=== PATIENT | female | born 1935 | race African-American/Black ===

== ENCOUNTER → 2016-03-14 | Outpatient (CLI) | payer MEDICARE, OTHER ==
[~2016-03-14] MED LIST: BENZ100 PO; CALTTAB PO; CARD300C5 PO; CETI10 PO; CO Q100C9 PO; ENAL20TA PO; FLUT1INH INH; LASI20TA PO; LORTA5 PO; NOVOLOGMXP SQ; OXYB5TAB33 PO; ROSU5 PO; SPIRCAP INH; STOO100C PO
== END ==
LOC: HRSP 09:06
PROVIDERS: ATTEND Internal Medicine Pulmonary Disease
DX: J44.9 Chronic obstructive pulmonary disease, unspecified (principal)
CPT/HCPCS: 94620

== ENCOUNTER → 2016-03-19 | Outpatient (CLI) | payer MEDICARE, OTHER | LOC: HRSP 13:32 | PROVIDERS: ATTEND Internal Medicine Pulmonary Disease | DX: J44.9 Chronic obstructive pulmonary disease, unspecified (principal) | CPT/HCPCS: 94620 ==

== ENCOUNTER 2016-12-30 15:09 | Inpatient (IN) | payer MEDICARE, OTHER ==
[~2016-12-30] VITALS: Ht 162.6 cm; Wt 126.2 kg
[2016-12-30 15:12] VITALS: BP 145/58; PULSE 87; RESP 24; TEMP 97.8; O2SAT 96
[2016-12-30 15:25] VITALS: RESP 16; O2SAT 98
[2016-12-30] MEDS ORDERED: SODIUM CHLORID 0.9% 500 ML INJ 500 ML IV ONE (15:30)
[2016-12-30] MEDS ORDERED: SODIUM CHLORIDE 0.9% FLUSH 10 ML FLUSH IVF PRN (15:30)
--- NOTE | 2016-12-30 15:57 | PD ---
HPI Chief Complaint: Diabetic Time Seen by Provider: 15:21 Travel History International Travel<30 days: No Contact w/Intl Traveler<30days: No Traveled to known affect area: No History of Present Illness HPI Patient is an 81-year-old female with history of hypertension, hyperlipidemia, COPD on 2 L of oxygen at all times, diabetes currently taking Novolin 70/30 - 15 units in the morning as well as has a sliding scale insulin. Patient reports that around 11 PM last night, she had hypoglycemic episode. Patient reports that she felt lightheaded and dizzy and became diaphoretic and had a syncopal episode, she reports that her blood sugar at that time was 36. EMS arrived on scene and gave her glucose, reports that at that time she felt better and did not want to go to the hospital. Patient reports that prior to that, she was feeling fine. Reports that she did give herself her Novolin 70/ 30 in the morning, she did not give herself any sliding scale insulin. Patient reports that she has been feeling fine all day, denies any chest pain or shortness of breath, denies any dizziness or lightheadedness. Patient's daughter did call her primary care doctor, Dr. Carl Peters and was told to bring patient to the ER for evaluation. Patient reports that prior to coming to the emergency room, her blood sugar was 157. Patient's blood sugar in the emergency room was 132. Patient this time with no complaints, denies any dizziness, headaches, denies any chest pain or shortness of breath. Patient with no complaints. PFSH Past Medical History Arthritis: Yes Asthma: Yes Autoimmune Disease: No Blood Disorders: No Anxiety: No Depression: No Heart Rhythm Problems: No Cancer: No Cardiovascular Problems: Yes (CHF) High Cholesterol: No Chemotherapy: No Chest Pain: No Congestive Heart Failure: Yes COPD: Yes Cerebrovascular Accident: Yes (04/2000) Diabetes: Yes Patient Takes Glucophage: Yes Diminished Hearing: No Endocrine: Yes Gastrointestinal Disorders: Yes GERD: No Glaucoma: Yes Genitourinary: No Headaches: No Hepatitis: No Hiatal Hernia: No Hypertension: Yes Immune Disorder: No Implanted Vascular Access Dvce: Yes Kidney Stones: No Musculoskeletal: Yes Neurologic: Yes Psychiatric: No Reproductive: No Respiratory: Yes (CHF ) Migraines: No Myocardial Infarction: No Radiation Therapy: No Renal Failure: No Seizures: No Sickle Cell Disease: No Sleep Apnea: Yes (C-PAP MACHINE ) Thyroid Disease: No Ulcer: No Tetanus Vaccination: Unknown Menopausal: Yes Tubal Ligation: Yes Past Surgical History Abdominal Surgery: Yes AICD: No Appendectomy: No Arteriovenous Shunt: No Cardiac Surgery: No Cholecystectomy: Yes Ear Surgery: No Endocrine Surgery: No Eye Surgery: Yes (BL CATARACTS) Genitourinary Surgery: No Gynecologic Surgery: Yes Hysterectomy: Yes Insulin Pump: No Joint Replacement: No Neurologic Surgery: Yes Oral Surgery: No Pacemaker: No Thoracic Surgery: Yes Other Surgery: Yes Social History Alcohol Use: No Tobacco Use: No Substance Use: No Allergies-Medications (Allergen,Severity, Reaction): Coded Allergies: iodine (Unverified Allergy, Severe, RESPIRATORY, 12/30/16) iohexol (Unverified Allergy, Severe, PT NEEDS TO BE PREMEDICATED, 12/30/16 ) penicillin G (Unverified Allergy, Severe, HIVES, 12/30/16) potassium iodide (Unverified Allergy, Severe, RESPIRATORY, 12/30/16) povidone-iodine (Unverified Allergy, Severe, RESPIRATORY, 12/30/16) shellfish derived (Unverified Allergy, Severe, 12/30/16) sodium iodide (Unverified Allergy, Severe, RESPIRATORY, 12/30/16) sodium iodide (Unverified Allergy, Severe, RESPIRATORY, 12/30/16) Reported Meds & Prescriptions Reported Meds & Active Scripts Active Cetirizine Hcl 10 Mg Tab 5 Mg PO DAILY Tessalon Perles (Benzonatate) 100 Mg Cap 200 Mg PO TID Novolog Mix 70/30 (Insulin Aspart Prota 70%/Aspart 30%) 100 Units/Ml Inj 15 Units SQ DAILY Hydrocodone/Acetaminophen 5 mg/325 mg 1 Tab 1 Tab PO BID PRN Reported Ditropan (Oxybutynin Chloride) 5 Mg Tab 10 Mg PO HS Breo Ellipta 100-25 Mcg/INH (Fluticasone Furoate-Vilanterol) 1 Inh Inh 1 Puff INH DAILY Crestor (Rosuvastatin Calcium) 5 Mg Tab 5 Mg PO DAILY Cardizem CD 300 mg (Diltiazem CD 300 mg) 300MG/24 Cap 300 Mg PO DAILY Colace (Docusate Sodium) 100 Mg Cap 100 Mg PO DAILY PRN Co Q 10 (Coenzyme Q10) 100 Mg Cap 200 Mg PO DAILY Caltrate 600+D (Calcium Carbonate/Cholecalciferol) + Tab 600 Mg PO DAILY Lasix (Furosemide) 20 Mg Tab 20 Mg PO DAILY 30 Days Spiriva Handihaler (Tiotropium [place]) 18 Mcg Cap 1 Cap INH DAILY Enalapril Maleate 20 Mg Tab 20 Mg PO DAILY Review of Systems General / Constitutional: No: Fever Eyes: No: Visual changes HENT: No: Headaches Cardiovascular: No: Chest Pain or Discomfort Respiratory: No: Shortness of Breath Gastrointestinal: No: Abdominal Pain Genitourinary: No: Dysuria Musculoskeletal: No: Pain Skin: No Rash Neurologic: No: Weakness Psychiatric: No: Depression Endocrine: No: Polydipsia Hematologic/Lymphatic: No: Easy Bruising Physical Exam Narrative GENERAL: NAD SKIN: Focused skin assessment warm/dry. HEAD: Atraumatic. Normocephalic. EYES: Pupils equal and round. No scleral icterus. No injection or drainage. ENT: No nasal bleeding or discharge. Mucous membranes pink and moist. NECK: Trachea midline. No JVD. CARDIOVASCULAR: Regular rate and rhythm. No murmur appreciated. RESPIRATORY: No accessory muscle use. Expiratory wheezing on exam. Breath sounds equal bilaterally. GASTROINTESTINAL: Abdomen soft, non-tender, nondistended. Hepatic and splenic margins not palpable. MUSCULOSKELETAL: No obvious deformities. No clubbing. No cyanosis. +2 pedal edema. NEUROLOGICAL: Awake and alert. No obvious cranial nerve deficits. Motor grossly within normal limits. Normal speech. PSYCHIATRIC: Appropriate mood and affect; insight and judgment normal. Data Data Last Documented VS Vital Signs Date Time Temp Pulse Resp B/P (MAP) Pulse Ox O2 Delivery O2 Flow Rate FiO2 12/30/16 16:15 100 Nasal Cannula 2.00 12/30/16 15:25 16 12/30/16 15:12 97.8 87 Orders Orders Electrocardiogram (12/30/16 15:21) Complete Blood Count With Diff (12/30/16 15:21) Comprehensive Metabolic Panel (12/30/16 15:21) Magnesium (Mg) (12/30/16 15:21) Beta Hydroxybutyrate (Acetone) (12/30/16 15:21) Urinalysis - C+S If Indicated (12/30/16 15:21) Blood Glucose (12/30/16 15:21) Blood Glucose (12/30/16 15:51) Blood Glucose (12/30/16 15:21) Blood Glucose (12/30/16 16:21) Ecg Monitoring (12/30/16 15:21) Iv Access Insert/Monitor (12/30/16 15:21) Oximetry (12/30/16 15:21) Sodium Chloride 0.9% Flush (Ns Flush) (12/30/16 15:30) Sodium Chlorid 0.9% 500 Ml Inj (Ns 500 M (12/30/16 15:30) Ckmb (Isoenzyme) Profile (12/30/16 15:45) Troponin I (12/30/16 15:45) Chest, Single Ap (12/30/16 15:45) Albuterol-Ipratropium Neb (Duoneb Neb) (12/30/16 15:45) Levofloxacin 750 Mg Premix Inj (Levaquin (12/30/16 17:15) Blood Culture (12/30/16 17:06) Admit Order (Ed Use Only) (12/30/16 17:26) Labs Laboratory Tests Test 12/30/16 15:32 White Blood Count 5.5 TH/MM3 Red Blood Count 3.30 MIL/MM3 Hemoglobin 10.1 GM/DL Hematocrit 31.3 % Mean Corpuscular Volume 94.7 FL Mean Corpuscular Hemoglobin 30.5 PG Mean Corpuscular Hemoglobin Concent 32.2 % Red Cell Distribution Width 15.3 % Platelet Count 183 TH/MM3 Mean Platelet Volume 7.7 FL Neutrophils (%) (Auto) 65.6 % Lymphocytes (%) (Auto) 18.7 % Monocytes (%) (Auto) 12.3 % Eosinophils (%) (Auto) 3.0 % Basophils (%) (Auto) 0.4 % Neutrophils # (Auto) 3.6 TH/MM3 Lymphocytes # (Auto) 1.0 TH/MM3 Monocytes # (Auto) 0.7 TH/MM3 Eosinophils # (Auto) 0.2 TH/MM3 Basophils # (Auto) 0.0 TH/MM3 CBC Comment DIFF FINAL Differential Comment Blood Urea Nitrogen 31 MG/DL Creatinine 1.76 MG/DL Random Glucose 139 MG/DL Total Protein 7.4 GM/DL Albumin 3.5 GM/DL Calcium Level 8.7 MG/DL Magnesium Level 2.2 MG/DL Alkaline Phosphatase 76 U/L Aspartate Amino Transf (AST/SGOT) 16 U/L Alanine Aminotransferase (ALT/SGPT) 14 U/L Total Bilirubin 0.3 MG/DL Sodium Level 134 MEQ/L Potassium Level 4.6 MEQ/L Chloride Level 99 MEQ/L Carbon Dioxide Level 30.2 MEQ/L Anion Gap 5 MEQ/L Estimat Glomerular Filtration Rate 34 ML/MIN Total Creatine Kinase 99 U/L Troponin I LESS THAN 0.02 NG/ML B-Hydroxybutyrate 0.10 MMOL/L MDM Medical Decision Making Medical Screen Exam Complete: Yes Emergency Medical Condition: Yes Medical Record Reviewed: Yes Interpretation(s) EKG at 1537: NSR at 81bpm, qt/qtc: 359/397, no acute st or t wave changes Vital Signs Date Time Temp Pulse Resp B/P (MAP) Pulse Ox O2 Delivery O2 Flow Rate FiO2 12/30/16 15:25 16 98 Room Air 12/30/16 15:21 16 98 Room Air 12/30/16 15:12 97.8 87 24 145/58 (87) 96 Differential Diagnosis Hyperglycemia, COPD exacerbation, electrolyte abnormality, acs, arrhythmia Narrative Course Patient is an 81-year-old female with history of COPD, hypertension, hyperlipidemia, diabetes, presents to emergency room with complaints of hypoglycemic episode last night. She reports that she feels fine today, patient with no complaints, denies any chest pain or shortness breath or weakness. Patient's blood sugar the emergency room is 132. Patient was placed on a lunchroom monitor upon arrival to the ER. Lab work including xray of chest ordered. Patient does have mild wheezing on exam - duonebs ordered. Plan to monitor pt's blood sugars. CBC & BMP Diagram 12/30/16 15:32 Total Protein 7.4, Albumin 3.5, Calcium Level 8.7, Magnesium Level 2.2, Alkaline Phosphatase 76, Aspartate Amino Transf (AST/SGOT) 16, Alanine Aminotransferase (ALT/SGPT) 14, Total Bilirubin 0.3 Last Impressions Chest X-Ray 12/30/16 3962 Signed Impressions: Service Date/Time: Friday, December 30, 2016 15:52 - CONCLUSION: Left lower lobe infiltrate. Cardiomegaly. Bruce Ann Jr., MD Patient with left lower lobe infiltrate. Patient has been pancultured, iv levaquin ordered. cr 1.76 - elevated from baseline 1.53. I did reviewed all labs and studies with patient and her daughter. Daughter feels uncomfortable taking patient home and request that patient be admitted to the hospital. Call made to her pcp Dr. Arun Peters accepts pt to service, patient privileges have been suspended, request admission to [facility] Case reviewed with Dr. Rebolledo who accepts pt to service Diagnosis Primary Impression: Pneumonia Qualified Codes: J18.1 - Lobar pneumonia, unspecified organism Admitting Information Admitting Physician Requests: Observation Lucy Cedillo DO Dec 30, 2016 15:57
[2016-12-30 16:06] LABS: AUTOMATED NEUTROPHIL # 3.6 TH/MM3 (1.8-7.7); BASOPHIL % 0.4 % (0.0-2.0); EOSINOPHIL # 0.2 TH/MM3 (0-0.4); HEMATOCRIT 31.3 % (35.0-46.0); HEMO FLAGS DIFF FINAL; LYMPH % 18.7 % (9.0-44.0); MEAN CELL VOLUME 94.7 FL (80.0-100.0); MEAN CORPUSCULAR HEMOGLOBIN 30.5 PG (27.0-34.0); MEAN CORPUSCULAR HGB CONC 32.2 % (32.0-36.0); MONO % 12.3 % (0.0-8.0); NEUT % 65.6 % (16.0-70.0); PLATELET COUNT 183 TH/MM3 (150-450); RED CELL DISTRIBUTION WIDTH 15.3 % (11.6-17.2); WHITE BLOOD COUNT 5.5 TH/MM3 (4.0-11.0)
[2016-12-30 16:08] LABS: ALT (GPT) 14 U/L (10-53); ANION GAP 5 MEQ/L (5-15); AST (GOT) 16 U/L (15-37); BICARBONATE 30.2 MEQ/L (21.0-32.0); BLOOD UREA NITROGEN 31 MG/DL (7-18); CHLORIDE 99 MEQ/L (98-107); GLOMERULAR FILTRATION RATE 34 ML/MIN (>89); MAGNESIUM 2.2 MG/DL (1.5-2.5); POTASSIUM 4.6 MEQ/L (3.5-5.1); SODIUM (NA) 134 MEQ/L (136-145)
[2016-12-30 16:09] LABS: ALKALINE PHOSPHATASE 76 U/L (45-117); TOTAL BILIRUBIN ADULT 0.3 MG/DL (0.2-1.0)
[2016-12-30] MEDS: RESP: ALBUTEROL 2.5 MG/IPRATROPIUM 0.5 MG NEB (SCH) INH (16:12)
[2016-12-30 16:15] VITALS: O2SAT 100
--- NOTE | 2016-12-30 16:16 | RADRPT ---
EXAM DATE/TIME: 12/30/2016 15:52 [facility] COMPARISON: CHEST SINGLE AP, July 18, 2015, 18:45. INDICATIONS : Shortness of breath and cough. MEDICAL HISTORY : Chronic obstructive pulmonary disease. Diabetes mellitus type II. Congestive heart failure. Asthm a, arthritis. SURGICAL HISTORY : Tubal ligation. Hysterectomy. Cholecystectomy. ENCOUNTER: Initial ACUITY: 2 days PAIN SCORE: 0/10 LOCATION: Bilateral chest FINDINGS: A single portable frontal view of chest shows cardiomegaly. Left lower lobe intraalveolar opacity. No effusions. Right lungs clear. Degenerative changes of the spine. CONCLUSION: Left lower lobe infiltrate. Cardiomegaly. Bruce Ann Jr., MD on December 30, 2016 at 16:14 Board Certified Radiologist. This report was verified electronically.
[2016-12-30 16:43] LABS: CREATINE KINASE 99 U/L (26-192)
[2016-12-30] MEDS ORDERED: LEVOFLOXACIN 750 MG PREMIX INJ 150 ML IV ONE (17:15)
[2016-12-30] MEDS ORDERED: SODIUM CHLOR 0.45% 1000 ML INJ 1,000 ML IV SCH (17:35)
[2016-12-30 17:41] VITALS: BP 122/56; PULSE 83; RESP 16; O2SAT 100
[2016-12-30] MEDS ORDERED: SODIUM CHLORIDE 0.9% FLUSH 10 ML FLUSH IV FLUSH PRN (17:45)
[2016-12-30] MEDS ORDERED: ONDANSETRON HCL 4 MG/2 ML VIAL IVP PRN (17:45)
[2016-12-30] MEDS ORDERED: BISACODYL 10 MG SUPP RECTAL PRN (17:45)
[2016-12-30] MEDS ORDERED: DEXTROSE 50% IN WATER 50 ML VIAL(D50) IV PUSH PRN (17:45)
[2016-12-30] MEDS ORDERED: SENNOSIDES 8.6 MG TAB PO PRN (17:45)
[2016-12-30] MEDS ORDERED: GLUCAGON 1 MG/ML VIAL OTHER PRN (17:45)
[2016-12-30] MEDS ORDERED: LACTULOSE SYRUP 20 GM/30 ML CUP PO PRN (17:45)
[2016-12-30] MEDS ORDERED: NALOXONE HCL 0.4 MG/ML AMP IV PUSH PRN (17:45)
[2016-12-30] MEDS ORDERED: ACETAMINOPHEN 325 MG TAB PO PRN (17:45)
[2016-12-30] MEDS ORDERED: MAGNESIUM HYDROXIDE SUSP 30 ML CUP PO PRN (17:45)
[2016-12-30] MEDS ORDERED: PANTOPRAZOLE SODIUM 40 MG VIAL IV PUSH SCH (18:00)
[2016-12-30 18:28] LABS: BACTERIA, URINE MANY /hpf; BLOOD, URINE TRACE (NEG); COMMENT (UR) CULTURE INDICATED; CULTURE IF INDICATED CULTURE INDICATED; GLUCOSE,URINE NEG (NEG); KETONE, URINE NEG (NEG); MUCUS URINE FEW /lpf (OCC); NITRITE,URINE NEG (NEG); PH, URINE 5.5 (5.0-8.5); SQUAMOUS EPITHELIAL CELL URINE 14 /hpf (0-5); URINE COLOR YELLOW (YELLW/STRAW)
[2016-12-30] MEDS ORDERED: ENAL20TA PO (19:52)
[2016-12-30] MEDS ORDERED: ACTO15TA11 PO (19:52)
[2016-12-30] MEDS ORDERED: ALBU0.63 NEB (19:58)
[2016-12-30] MEDS ORDERED: CALTCHW4 CHEW (19:58)
[2016-12-30] MEDS ORDERED: FURO1TAB62 PO (19:58)
[2016-12-30] MEDS ORDERED: DILT-64 PO (19:58)
[2016-12-30] MEDS ORDERED: ROSU5 PO (19:58)
[2016-12-30] MEDS ORDERED: NOVOLOGMXP SQ (19:58)
[2016-12-30] MEDS ORDERED: UMEC1AER INH (19:59)
[2016-12-30] MEDS ORDERED: MELO-1 PO (19:59)
[2016-12-30] MEDS ORDERED: HYDR-3580 PO (20:02)
[2016-12-30 20:37] VITALS: BP 131/56; PULSE 83; RESP 18; TEMP 97.9; O2SAT 97
[2016-12-30] MEDS: INSULIN NovoLIN REGULAR SUPPLEMENTAL SCALE SQ SCH (21:00)
[2016-12-30] MEDS: DOCUSATE SODIUM 50 MG/SENNA 8.6 MG TAB PO SCH (21:00)
[2016-12-30] MEDS: RESP: ALBUTEROL 2.5 MG/IPRATROPIUM 0.5 MG NEB (SCH) NEB (21:16)
[2016-12-30 21:17] VITALS: O2SAT 97
[2016-12-30] MEDS: HEPARIN SODIUM - SQ 10,000 UNITS/ML VIAL SQ SCH (22:03)
[2016-12-31] VITALS (11 sets, daily range): BP systolic 115–164; BP diastolic 53–66; PULSE 58–88; RESP 17–18; TEMP 97.4–98.2; O2SAT 95–100
[2016-12-31] MEDS ORDERED: GABA100C4 PO (01:56)
[2016-12-31] MEDS ORDERED: GABAPENTIN 100 MG CAP PO SCH (02:35)
[2016-12-31] MEDS: ACETAMINOPHEN/HYDROcodone 325 MG/7.5 MG TAB PO PRN ×3 (02:42→20:37)
[2016-12-31 07:26] LABS: AUTOMATED NEUTROPHIL # 2.9 TH/MM3 (1.8-7.7); BASOPHIL % 0.4 % (0.0-2.0); EOSINOPHIL # 0.2 TH/MM3 (0-0.4); EOSINOPHIL % 3.5 % (0.0-4.0); HEMATOCRIT 27.3 % (35.0-46.0); HEMO FLAGS DIFF FINAL; LYMPH % 18.4 % (9.0-44.0); LYMPHOCYTE # 0.8 TH/MM3 (1.0-4.8); MEAN CELL VOLUME 93.7 FL (80.0-100.0); MEAN CORPUSCULAR HEMOGLOBIN 30.2 PG (27.0-34.0); MEAN CORPUSCULAR HGB CONC 32.2 % (32.0-36.0); MONO % 14.4 % (0.0-8.0); NEUT % 63.3 % (16.0-70.0); PLATELET COUNT 143 TH/MM3 (150-450); RED BLOOD COUNT 2.91 MIL/MM3 (4.00-5.30); RED CELL DISTRIBUTION WIDTH 15.3 % (11.6-17.2); WHITE BLOOD COUNT 4.6 TH/MM3 (4.0-11.0)
[2016-12-31 07:51] LABS: BICARBONATE 28.6 MEQ/L (21.0-32.0); POTASSIUM 4.8 MEQ/L (3.5-5.1)
[2016-12-31] MEDS: INSULIN NovoLIN REGULAR SUPPLEMENTAL SCALE SQ SCH ×3 (08:00→17:00)
[2016-12-31] MEDS: DOCUSATE SODIUM 50 MG/SENNA 8.6 MG TAB PO SCH ×2 (08:11→20:36)
[2016-12-31] MEDS: HEPARIN SODIUM - SQ 10,000 UNITS/ML VIAL SQ SCH ×2 (08:11→20:36)
[2016-12-31] MEDS: RESP: ALBUTEROL 2.5 MG/IPRATROPIUM 0.5 MG NEB (SCH) NEB ×3 (08:15→20:23)
--- NOTE | 2016-12-31 09:18 | HHI.HP ---
[facility] Arun Peters MD Admission Diagnosis Pneumonia Diagnoses: Travel History International Travel<30 Days: No Contact w/Intl Traveler <30 Da: No Traveled to Known Affected Are: No History of Present Illness Is a very pleasant 81-year-old female patient of Dr. Carl Peters. The patient was diaphoretic and had a syncopal episode Saturday night 3 nights ago therefore family called 911. Her blood sugar 36 and was recommended to come to the hospital however she declined, Her diaphoresis and lightheadedness resolved. Family called the primary physician following day and he recommended that the patient comes to the emergency department for a thorough investigation. The patient did so and was found to have a left lower lobe infiltrate. She was seen this morning by the undersigned in room 1412 in the presence of Her daughter. Ration is alert and oriented. The daughter does most of the talking. She was started on Levaquin at the emergency department. She has some bilateral wheezing and some cough. She denies any complaints otherwise. Incidentally she was found to have a hemoglobin of 8.8 and a creatinine of 1.63. Apparently she has had trouble with her kidney function before. Currently no fever chills or diaphoresis. No resting dyspnea. She does have some difficulty ambulating. She is morbidly obese. Review of Systems Other 10 systems reviewed and otherwise negative Past Family Social History Past Medical History Arthritis Asthma Heart failure Stroke in 2000 Diabetes mellitus Morbid obesity Glaucoma Hypertension Difficulty ambulating Sleep apnea on C Pap at night, the family are very particular about using C Pap as the patient Gets very confused in the morning if she did not use the C Pap the night prior Past Surgical History Cholecystectomy Bilateral cataracts Hysterectomy Reported Medications Reported Meds & Active Scripts Active Reported Gabapentin 100 Mg Cap 200 Mg PO HS Hydrocodone-Acetaminophen 7.5-325 mg Tab 1 Tab PO BID PRN Meloxicam 15 Mg Tab 15 Mg PO DAILY Anoro Ellipta Inh (Umeclidinium/Vilanterol) 62.5-25 Mcg/Act Aero 1 Puff INH DAILY Albuterol Neb (Albuterol Sulfate) 0.63 Mg/3 Ml Neb 0.63 Mg NEB QID NEB Diltiazem CD 24 HR 240 Mg Caper 240 Mg PO DAILY Caltrate 600+D Soft Chews (Calcium Carbonate-Cholecalciferol) 600-800 Mg-Unit Chew 1 Tab CHEW DAILY Crestor (Rosuvastatin Calcium) 5 Mg Tab 5 Mg PO DAILY Novolog Mix 70-30 Inj (Insulin Aspart Prota 70%/Aspart 30%) 1,000 Unit/10 Ml Vial 15 Units SQ DAILY Lasix (Furosemide) 20 Mg Tab 20 Mg PO DAILY Actos (Pioglitazone HCl) 15 Mg Tab 15 Mg PO DAILY Enalapril (Enalapril Maleate) 20 Mg Tab 20 Mg PO DAILY Allergies: Coded Allergies: iodine (Unverified Allergy, Severe, RESPIRATORY, 12/30/16) iohexol (Unverified Allergy, Severe, PT NEEDS TO BE PREMEDICATED, 12/30/16 ) penicillin G (Unverified Allergy, Severe, HIVES, 12/30/16) potassium iodide (Unverified Allergy, Severe, RESPIRATORY, 12/30/16) povidone-iodine (Unverified Allergy, Severe, RESPIRATORY, 12/30/16) shellfish derived (Unverified Allergy, Severe, 12/30/16) sodium iodide (Unverified Allergy, Severe, RESPIRATORY, 12/30/16) sodium iodide (Unverified Allergy, Severe, RESPIRATORY, 12/30/16) Family History Reviewed but not contributory Social History No smoking alcohol or illicit drug use Physical Exam Vital Signs Vital Signs Date Time Temp Pulse Resp B/P (MAP) Pulse Ox O2 Delivery O2 Flow Rate FiO2 12/31/16 08:15 100 Nasal Cannula 1.00 12/31/16 04:00 97.4 78 18 128/59 (82) 95 12/31/16 02:15 86 12/31/16 01:45 97.9 80 18 148/66 (93) 99 12/31/16 00:33 97.9 87 18 115/53 (73) 100 12/30/16 21:17 97 Nasal Cannula 2.00 12/30/16 20:37 97.9 83 18 131/56 (81) 97 12/30/16 18:49 12/30/16 17:41 83 16 122/56 (78) 100 Room Air 12/30/16 16:15 100 Nasal Cannula 2.00 12/30/16 15:25 16 98 Room Air 12/30/16 15:21 16 98 Room Air 12/30/16 15:12 97.8 87 24 145/58 (87) 96 Physical Exam GENERAL: This is a very pleasant, morbidly obese, weak looking , well-developed patient, in no apparent distress. SKIN: No rashes, ecchymoses or lesions. Cool and dry. HEAD: Atraumatic. Normocephalic. No temporal or scalp tenderness. EYES: Pupils equal round and reactive. Extraocular motions intact. No scleral icterus. No injection or drainage. ENT: Nose without bleeding, purulent drainage or septal hematoma. Throat without erythema, tonsillar hypertrophy or exudate. Uvula midline. Airway patent. NECK: Trachea midline. No JVD or lymphadenopathy. Supple, nontender, no meningeal signs. CARDIOVASCULAR: Regular rate and rhythm without murmurs, gallops, or rubs. RESPIRATORY: Bilateral wheezes and crackles GASTROINTESTINAL: Abdomen soft, non-tender, nondistended. No hepato-splenomegaly , or palpable masses. No guarding. MUSCULOSKELETAL: Extremities with trace edema in the ankles. NEUROLOGICAL: Awake and alert. Cranial nerves II through XII intact. Motor and sensory grossly within normal limits. Laboratory Laboratory Tests Test 12/30/16 15:32 12/30/16 17:25 12/31/16 06:25 White Blood Count 5.5 4.6 Red Blood Count 3.30 2.91 Hemoglobin 10.1 8.8 Hematocrit 31.3 27.3 Mean Corpuscular Volume 94.7 93.7 Mean Corpuscular Hemoglobin 30.5 30.2 Mean Corpuscular Hemoglobin Concent 32.2 32.2 Red Cell Distribution Width 15.3 15.3 Platelet Count 183 143 Mean Platelet Volume 7.7 7.6 Neutrophils (%) (Auto) 65.6 63.3 Lymphocytes (%) (Auto) 18.7 18.4 Monocytes (%) (Auto) 12.3 14.4 Eosinophils (%) (Auto) 3.0 3.5 Basophils (%) (Auto) 0.4 0.4 Neutrophils # (Auto) 3.6 2.9 Lymphocytes # (Auto) 1.0 0.8 Monocytes # (Auto) 0.7 0.7 Eosinophils # (Auto) 0.2 0.2 Basophils # (Auto) 0.0 0.0 CBC Comment DIFF FINAL DIFF FINAL Differential Comment Blood Urea Nitrogen 31 33 Creatinine 1.76 1.63 Random Glucose 139 86 Total Protein 7.4 Albumin 3.5 Calcium Level 8.7 9.0 Magnesium Level 2.2 Alkaline Phosphatase 76 Aspartate Amino Transf (AST/SGOT) 16 Alanine Aminotransferase (ALT/SGPT) 14 Total Bilirubin 0.3 Sodium Level 134 136 Potassium Level 4.6 4.8 Chloride Level 99 100 Carbon Dioxide Level 30.2 28.6 Anion Gap 5 7 Estimat Glomerular Filtration Rate 34 37 Total Creatine Kinase 99 Troponin I LESS THAN 0.02 B-Hydroxybutyrate 0.10 Urine Color YELLOW Urine Turbidity HAZY Urine pH 5.5 Urine Specific [place] 1.014 Urine Protein NEG Urine Glucose (UA) NEG Urine Ketones NEG Urine Occult Blood TRACE Urine Nitrite NEG Urine Bilirubin NEG Urine Urobilinogen LESS THAN 2.0 Urine Leukocyte Esterase LARGE Urine RBC 15 Urine WBC 11 Urine Squamous Epithelial Cells 14 Urine Amorphous Sediment RARE Urine Bacteria MANY Urine Mucus FEW Microscopic Urinalysis Comment CULTURE INDICATED Date/Time Source Procedure Growth Status 12/30/16 17:20 Blood Peripheral Aerobic Blood Culture Pending Received 12/30/16 17:20 Blood Peripheral Anaerobic Blood Culture Pending Received 12/30/16 17:25 Urine Random Urine Urine Culture Pending Received Result Diagram: 12/31/16 0625 12/31/16 0625 Imaging Last 24 hours Impressions Chest X-Ray 12/30/16 1545 Signed Impressions: Service Date/Time: Friday, December 30, 2016 15:52 - CONCLUSION: Left lower lobe infiltrate. Cardiomegaly. MD Adrián Diaz Jr. VTE Risk Assessment Adrián VTE Risk Assessment: Mod/High Risk (score >= 2) Caprini Risk Assessment Model Point Value = 1 Point Value = 2 Point Value = 3 Point Value = 5 Age 41-60 Minor surgery BMI > 25 kg/m2 Swollen legs Varicose veins or History of unexplained or recurrent spontaneous Oral contraceptives or hormone replacement Sepsis (< 1 month) Serious lung disease, including pneumonia (< 1 month) Abnormal pulmonary function Acute myocardial infarction Congestive heart failure (< 1 month) History of inflammatory bowel disease Medical patient at bed rest Age 61-74 Arthroscopic surgery Major open surgery (> 45 min) Laparoscopic surgery (> 45 min) Malignancy Confined to bed (> 72 hours) Immobilizing plaster cast Central venous access Age >= 75 History of VTE Family history of VTE Factor V Leiden Prothrombin [id number] Lupus anticoagulant Anticardiolipin antibodies Elevated serum homocysteine Heparin-induced thrombocytopenia Other congenital or acquired thrombophilia Stroke (< 1 month) Elective arthroplasty Hip, pelvis, or leg fracture Acute spinal cord injury (< 1 month) Prophylaxis Regimen Total Risk Factor Score Risk Level Prophylaxis Regimen 0-1 Low Early ambulation 2 Moderate Order ONE of the following: *Sequential Compression Device (SCD) *Heparin 5000 units SQ BID 3-4 Higher Order ONE of the following medications: *Heparin 5000 units SQ TID *Enoxaparin/Lovenox 40 mg SQ daily (WT < 150 kg, CrCl > 30 mL/min) *Enoxaparin/Lovenox 30 mg SQ daily (WT < 150 kg, CrCl > 10-29 mL/min) *Enoxaparin/Lovenox 30 mg SQ BID (WT < 150 kg, CrCl > 30 mL/min) AND/OR *Sequential Compression Device (SCD) 5 or more Highest Order ONE of the following medications: *Heparin 5000 units SQ TID (Preferred with Epidurals) *Enoxaparin/Lovenox 40 mg SQ daily (WT < 150 kg, CrCl > 30 mL/min) *Enoxaparin/Lovenox 30 mg SQ daily (WT < 150 kg, CrCl > 10-29 mL/min) *Enoxaparin/Lovenox 30 mg SQ BID (WT < 150 kg, CrCl > 30 mL/min) AND *Sequential Compression Device (SCD) Assessment and Plan Assessment and Plan Assessment Left lower lobe infiltrate Chronic kidney disease Significant anemia Microscopic hematuria Cannot rule out urinary infection Diabetes mellitus with fluctuating blood sugar Recent episode of severe symptomatic hypoglycemia Morbid obesity Management The patient was admitted to telemetry She was started on Levaquin at the emergency department and this is now continued Home medications are continued DVT prophylaxis with low-dose heparin Venous studies ordered renal indices to be followed Urine culture to be followed Ambulate as reasonably tolerated Discussed with patient and her daughter I made a call to Dr. Peters and left a message The patient's daughter informing the Dr. Peters will be following the patient 40 minutes Discussed With: Nurse, Family Chyna Pang MD Dec 31, 2016 09:18
--- NOTE | 2016-12-31 12:59 | EKG ---
Date Performed: 12/30/2016 Time Performed: 15:32:54 PTAGE: 81 years EKG: Sinus rhythm WITH FIRST DEGREE AV BLOCK LOW QRS VOLTAGE IN PRECORDIAL LEADS Since previous tracing, no significan t change noted Abnormal ECG PREVIOUS TRACING : 07/18/2015 16.04 DOCTOR: Daniel Doyle Interpretating Date/Time 12/31/2016 12:58:28
[2016-12-31] MEDS ORDERED: PILL SPLITTER OTHER PRN (14:00)
[2016-12-31] MEDS: ENALAPRIL MALEATE 10 MG TAB PO SCH (14:02)
[2016-12-31] MEDS: FUROSEMIDE 20 MG TAB PO SCH (14:02)
[2016-12-31] MEDS: CALCIUM/VITAMIN D 250 MG/125 U TAB PO SCH (14:02)
[2016-12-31] MEDS: DILTIAZEM-CD 240 MG CAP ER PO SCH (14:02)
[2016-12-31] MEDS: MELOXICAM 15 MG TAB PO SCH (14:02)
[2016-12-31] MEDS: UMECLIDINIUM 62.5 MCG/VILANTEROL 25 MCG INHALER INH SCH (14:03)
[2016-12-31] MEDS: ATORVASTATIN 10 MG TAB PO SCH (14:03)
[2016-12-31] MEDS: INSULIN ASPAR PROT 70/30 1,000 UNITS/10 ML VIAL SQ SCH (14:09)
--- NOTE | 2016-12-31 15:30 | MB ---
cc: BRYSON MOORE MAZHAR MD DATE OF CONSULTATION: 12/31/2016 REASON FOR CONSULTATION Pneumonia and sleep apnea. HISTORY OF PRESENT ILLNESS Ms. Aparicio is an 81-year-old -[place] female with a history of COPD, obstructive sleep apnea, history of diabetes mellitus. The patient had an episode of sweating profusely and feeling weak, and was found to have a blood sugar of 36. The patient declined to come to the emergency room. The next day she called Dr. Peters's office who advised her to come to the emergency room. She feels weak, has wheezing and cough, not able to bring up any phlegm. No chest pain. No nausea or vomiting. The patient was evaluated in the emergency room. Chest x-ray shows a left lower lobe infiltrate. Her WBC count is 4.6, hemoglobin 8.8, hematocrit 27.3, MCV 93, platelet count 143. Sodium 130, potassium 4.8, chloride 00, CO2 28, BUN 33, creatinine 1.63. PAST MEDICAL HISTORY 1. COPD. 2. Obstructive sleep apnea. 3. Diabetes mellitus. 4. Asthma. 5. Congestive heart failure. PAST SURGICAL HISTORY 1. Cholecystectomy. 2. Hysterectomy. 3. Tubal ligation. 4. C-spine surgery. MEDICATIONS She is currently takin. Neurontin 200 mg at nighttime. 2. Famotidine 10 mg a day. 3. Levaquin 500 mg a day. 4. Lipitor 10 mg a day. 5. Diltiazem 240 mg a day. 6. Vasotec 20 mg a day. 7. Lasix 20 mg a day. 8. Meloxicam 15 mg a day. 9. Hydrocodone for pain. 10.Heparin 5000 units q.12h. 11.Albuterol/Atrovent nebulizer treatment. ALLERGIES 1. IODINE. 2. PENICILLIN. 3. POTASSIUM. 4. SHELLFISH. 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 No history of smoking. No alcohol use. She is single. She lives with her grandchild. She had nine children, one with esophageal cancer, one with a stroke and heart disease. REVIEW OF SYSTEMS The patient walks short distances with the help of a walker. Denies any malignancy. No DVT or pulmonary embolism. Has gained weight. PHYSICAL EXAMINATION GENERAL: An obese female mildly short of breath. VITAL SIGNS: Blood pressure 134/58, heart rate 75, respirations 18, temperature 97.5. HEENT: Unremarkable. NECK: Supple. JVP is not raised. CHEST: A few bilateral expiratory rhonchi. CV: S1 and S2 normal. ABDOMEN: Soft, nondistended. Bowel sounds are present. EXTREMITIES: No edema. IMPRESSION 1. COPD with exacerbation. 2. Left lower lobe infiltrate. 3. CHF. 4. Syncopal episode with hypoglycemia. 5. Diabetes mellitus. 6. Hypertension. 7. Renal insufficiency. PLAN I discussed with the patient and her daughter. She will use CPAP at nighttime. I will give her a short course of steroids, Solu-Medrol 40 mg q.8h. Monitor her blood sugar. Continue aerosol treatment. Continue antibiotic. Supplement her oxygen to keep her saturation greater than 90%. Further treatment will depend on the course in the hospital. Thank you, Dr. Pang, for this consult. MD VIKTORIA Muniz/JULIANE /2:40 PM /3:10 PM
[2016-12-31] MEDS: RESP: ALBUTEROL 0.63 MG/3 ML NEB (SCH) NEB ×2 (16:00→20:24)
[2016-12-31] MEDS: LEVOFLOXACIN 500 MG PREMIX INJ 100 ML IV SCH (17:04)
[2016-12-31] MEDS ORDERED: GLUCAGON 1 MG/ML VIAL OTHER PRN (20:30)
[2016-12-31] MEDS ORDERED: DEXTROSE 50% IN WATER 50 ML VIAL(D50) IV PUSH PRN (20:30)
[2016-12-31] MEDS: FAMOTIDINE 20 MG TAB PO SCH (20:37)
[2016-12-31] MEDS: GABAPENTIN 100 MG CAP PO SCH (20:37)
[2016-12-31] MEDS: INSULIN ASPART SUPPLEMENTAL SCALE SQ SCH (20:53)
[2016-12-31] MEDS: methylPREDNISolone SOD SUCC 40 MG/1 ML VIAL IV PUSH SCH (22:00)
[2017-01-01] VITALS (10 sets, daily range): BP systolic 139–153; BP diastolic 65–94; PULSE 74–96; RESP 18–20; TEMP 97.8–98.5; O2SAT 92–100
[2017-01-01] MEDS: methylPREDNISolone SOD SUCC 40 MG/1 ML VIAL IV PUSH SCH ×3 (05:29→22:01)
[2017-01-01] MEDS: INSULIN ASPART SUPPLEMENTAL SCALE SQ SCH ×4 (08:00→22:01)
[2017-01-01] MEDS: RESP: ALBUTEROL 0.63 MG/3 ML NEB (SCH) NEB ×4 (08:24→20:34)
[2017-01-01] MEDS: UMECLIDINIUM 62.5 MCG/VILANTEROL 25 MCG INHALER INH SCH (10:05)
[2017-01-01] MEDS: HEPARIN SODIUM - SQ 10,000 UNITS/ML VIAL SQ SCH ×2 (10:08→21:47)
[2017-01-01] MEDS: DILTIAZEM-CD 240 MG CAP ER PO SCH (10:10)
[2017-01-01] MEDS: FUROSEMIDE 20 MG TAB PO SCH (10:10)
[2017-01-01] MEDS: DOCUSATE SODIUM 50 MG/SENNA 8.6 MG TAB PO SCH ×2 (10:11→21:47)
[2017-01-01] MEDS: CALCIUM/VITAMIN D 250 MG/125 U TAB PO SCH (10:11)
[2017-01-01] MEDS: FAMOTIDINE 20 MG TAB PO SCH ×2 (10:11→21:47)
[2017-01-01] MEDS: MELOXICAM 15 MG TAB PO SCH (10:11)
[2017-01-01] MEDS: ENALAPRIL MALEATE 10 MG TAB PO SCH (10:12)
[2017-01-01] MEDS: ACETAMINOPHEN/HYDROcodone 325 MG/7.5 MG TAB PO PRN ×2 (10:12→21:48)
[2017-01-01] MEDS: ATORVASTATIN 10 MG TAB PO SCH (10:18)
[2017-01-01] MEDS: INSULIN ASPAR PROT 70/30 1,000 UNITS/10 ML VIAL SQ SCH (11:00)
--- NOTE | 2017-01-01 13:50 | HHI.PR ---
Subjective Interval History Alert, verbal, oriented, feeling very weak, coughing but not producing any phlegm, seen in the presence of her daughter Review of Systems Constitutional Constitutional Remarks As above, consistent review otherwise negative Vitals/Results Vital Signs Vital Signs Date Time Temp Pulse Resp B/P (MAP) Pulse Ox O2 Delivery O2 Flow Rate FiO2 01/01/17 13:24 18 01/01/17 12:00 98.1 82 20 148/70 (96) 100 01/01/17 08:25 96 Nasal Cannula 2.00 01/01/17 08:00 98.5 86 20 139/94 (109) 100 01/01/17 04:22 96 01/01/17 04:00 97.8 78 18 153/69 (97) 92 01/01/17 00:00 98.3 84 18 146/65 (92) 98 12/31/16 20:24 Nasal Cannula 2.00 12/31/16 20:24 99 12/31/16 20:00 98.2 88 18 138/62 (87) 100 12/31/16 16:00 97.5 84 18 164/58 (93) 99 CBC/BMP: 12/31/16 0625 12/31/16 0625 Physical Exam General General Appearance: Well Developed, No Acute Distress, Comfortable, Obese Eyes Eye Exam: Pupils Reactive Ears & Nose Ears & Nose Exam: Nasal Mucosa [place] Throat Throat Exam: Oral Mucosa [place] & Moist Neck Neck Exam: Trachea Midline Pulmonary Resp Exam: Breath Sounds Equal, Rhonchi Cardiology CV Exam: Regular, Normal Sinus Rhythm, Good Perfusion Gastrointestinal/Abdomen GI Exam: Non-Tender, Bowel Sounds Present Musculoskeletal MS Exam: Normal Tone Integumentary Skin Exam: Warm, Dry Neurologic Neuro Exam: Alert, Awake, Oriented, Speech Clear, Moving All Extremities, Project Manager Retail Equal, No Focal Deficits Psychiatric Psych Exam: Appropriate Responses VTE Prophylaxis VTE Prophylaxis Meds: Heparin Assessment/Plan Assessment/Plan Assessment Left lower lobe infiltrate Chronic kidney disease Significant anemia Microscopic hematuria Cannot rule out urinary infection Diabetes mellitus with fluctuating blood sugar Recent episode of severe symptomatic hypoglycemia Morbid obesity Management telemetry Levaquin Intravenous steroids started by sleeve maker Home medications are continued DVT prophylaxis with low-dose heparin renal indices to be followed Urine culture to be followed EZ-Pap humidify oxygen Ambulate as reasonably tolerated Discussed with patient and her daughter Dr. Peters will be following the patient possibly tomorrow 35 minutes Discussed Condition with: Daughter Chyna Pang MD Jan 01, 2017 13:50
[2017-01-01] MEDS: LEVOFLOXACIN 500 MG PREMIX INJ 100 ML IV SCH (17:13)
--- NOTE | 2017-01-01 19:30 | HHI.PR ---
Subjective Remarks 81 YOAA female with COPD Exac,LLLinfilt, CHF Breathing better On Nc Cough, no sp no Fever Objective Vital Signs Vital Signs Date Time Temp Pulse Resp B/P (MAP) Pulse Ox O2 Delivery O2 Flow Rate FiO2 01/01/17 16:00 98.2 91 20 150/87 (108) 99 01/01/17 13:24 18 01/01/17 12:00 98.1 82 20 148/70 (96) 100 01/01/17 08:25 96 Nasal Cannula 2.00 01/01/17 08:00 98.5 86 20 139/94 (109) 100 01/01/17 07:15 Nasal Cannula 2.00 01/01/17 04:22 96 01/01/17 04:00 97.8 78 18 153/69 (97) 92 01/01/17 00:00 98.3 84 18 146/65 (92) 98 12/31/16 20:24 Nasal Cannula 2.00 12/31/16 20:24 99 12/31/16 20:00 98.2 88 18 138/62 (87) 100 I/O 12/31/16 12/31/16 12/31/16 01/01/17 01/01/17 01/01/17 07:00 15:00 23:00 07:00 15:00 23:00 Intake Total 120 ml 898 ml 720 ml 480 ml 720 ml Output Total 1600 ml 750 ml 800 ml Balance 120 ml 898 ml -880 ml -270 ml -80 ml Intake Oral 120 ml 720 ml 480 ml 720 ml IV Total 898 ml Output Urine Total 1600 ml 750 ml 800 ml # Voids 2 # Bowel Movements 0 0 0 Result Diagram: 12/31/1662412/31/16624 Objective Remarks GENERAL: Obese AA female, mild sob SKIN: Warm and dry. HEAD: Normocephalic. EYES: No scleral icterus. No injection or drainage. NECK: Supple, trachea midline. No JVD or lymphadenopathy. CARDIOVASCULAR: Regular rate and rhythm without murmurs, gallops, or rubs. RESPIRATORY: Breath sounds equal bilaterally. No accessory muscle use. End exp rhonchi GASTROINTESTINAL: Abdomen soft, non-tender, nondistended. MUSCULOSKELETAL: No cyanosis, or edema. BACK: Nontender without obvious deformity. No CVA tenderness. A/P Assessment and Plan COPD exac CHF DM Syncope LLL infilt renal insuff PLAN: IV Solumedrol Aerosol nebs Acapella q 1 hr while awake supplement 02 Dw pt and her daughter KyleeGeorge MD Jan 01, 2017 19:30
[2017-01-01] MEDS: GABAPENTIN 100 MG CAP PO SCH (21:48)
[2017-01-01 22:22] LABS: TRANSFERRIN IRON PROFILE 191 MG/DL (200-360)
[2017-01-02] VITALS (10 sets, daily range): BP systolic 135–168; BP diastolic 58–77; PULSE 73–81; RESP 18–20; TEMP 97–99.1; O2SAT 97–100
[2017-01-02] MEDS: methylPREDNISolone SOD SUCC 40 MG/1 ML VIAL IV PUSH SCH ×3 (05:30→21:19)
[2017-01-02] MEDS: HEPARIN SODIUM - SQ 10,000 UNITS/ML VIAL SQ SCH ×2 (08:00→21:19)
[2017-01-02] MEDS: RESP: ALBUTEROL 0.63 MG/3 ML NEB (SCH) NEB ×4 (08:16→20:34)
[2017-01-02] MEDS: INSULIN ASPAR PROT 70/30 1,000 UNITS/10 ML VIAL SQ SCH (09:00)
[2017-01-02] MEDS: INSULIN ASPART SUPPLEMENTAL SCALE SQ SCH ×5 (10:00→21:00)
[2017-01-02] MEDS: LEVOFLOXACIN 500 MG PREMIX INJ 100 ML IV SCH (10:03)
[2017-01-02] MEDS: MELOXICAM 15 MG TAB PO SCH (10:06)
[2017-01-02] MEDS: DILTIAZEM-CD 240 MG CAP ER PO SCH (10:08)
[2017-01-02] MEDS: CALCIUM/VITAMIN D 250 MG/125 U TAB PO SCH (10:08)
[2017-01-02] MEDS: FAMOTIDINE 20 MG TAB PO SCH ×2 (10:08→21:20)
[2017-01-02] MEDS: ENALAPRIL MALEATE 10 MG TAB PO SCH (10:09)
[2017-01-02] MEDS: FUROSEMIDE 20 MG TAB PO SCH (10:09)
[2017-01-02] MEDS: ATORVASTATIN 10 MG TAB PO SCH (10:10)
[2017-01-02] MEDS: DOCUSATE SODIUM 50 MG/SENNA 8.6 MG TAB PO SCH ×2 (10:10→21:00)
[2017-01-02] MEDS: UMECLIDINIUM 62.5 MCG/VILANTEROL 25 MCG INHALER INH SCH (10:21)
[2017-01-02] MEDS: ACETAMINOPHEN/HYDROcodone 325 MG/7.5 MG TAB PO PRN ×2 (10:38→23:00)
--- NOTE | 2017-01-02 19:24 | HHI.PR ---
Subjective Remarks 81 YOAA female with COPD Exac,LLLinfilt, CHF Breathing better On Nc Cough, no sp no Fever Wheezing improved Uses Acapella Objective Vital Signs Vital Signs Date Time Temp Pulse Resp B/P (MAP) Pulse Ox O2 Delivery O2 Flow Rate FiO2 01/02/17 16:00 97.5 76 20 168/76 (106) 100 01/02/17 12:00 97.5 79 18 135/63 (87) 98 01/02/17 12:00 97.5 76 20 168/76 (106) 100 01/02/17 11:40 16 01/02/17 09:00 Nasal Cannula 2.00 01/02/17 08:17 97 Nasal Cannula 2.00 01/02/17 08:00 98.5 79 18 156/67 (96) 98 01/02/17 07:54 73 01/02/17 04:00 98.5 81 18 168/77 (107) 97 01/02/17 00:00 99.1 79 18 141/58 (85) 98 01/01/17 21:00 Nasal Cannula 2.00 01/01/17 20:40 98 Nasal Cannula 2.00 01/01/17 20:00 98.3 85 18 149/67 (94) 96 01/01/17 19:33 74 I/O 01/01/17 01/01/17 01/01/17 01/02/17 01/02/17 01/02/17 07:00 15:00 23:00 07:00 15:00 23:00 Intake Total 480 ml 720 ml 480 ml Output Total 750 ml 800 ml 1200 ml 300 ml Balance -270 ml -80 ml -1200 ml 180 ml Intake Oral 480 ml 720 ml 480 ml Output Urine Total 750 ml 800 ml 1200 ml 300 ml # Voids 2 # Bowel Movements 0 1 1 Result Diagram: 12/31/1662412/31/16624 Objective Remarks GENERAL: Obese AA female, mild sob SKIN: Warm and dry. HEAD: Normocephalic. EYES: No scleral icterus. No injection or drainage. NECK: Supple, trachea midline. No JVD or lymphadenopathy. CARDIOVASCULAR: Regular rate and rhythm without murmurs, gallops, or rubs. RESPIRATORY: Breath sounds equal bilaterally. No accessory muscle use. End exp rhonchi GASTROINTESTINAL: Abdomen soft, non-tender, nondistended. MUSCULOSKELETAL: No cyanosis, or edema. BACK: Nontender without obvious deformity. No CVA tenderness. A/P Assessment and Plan COPD exac CHF DM Syncope LLL infilt renal insuff PLAN: IV Solumedrol Aerosol nebs Acapella q 1 hr while awake supplement 02 Anxious to go home George Pichardo MD Jan 02, 2017 19:24
[2017-01-02] MEDS: GABAPENTIN 100 MG CAP PO SCH (21:19)
[2017-01-03] VITALS (8 sets, daily range): BP systolic 124–169; BP diastolic 58–83; PULSE 76–84; RESP 20–24; TEMP 97.2–98; O2SAT 92–99
[2017-01-03] MEDS: methylPREDNISolone SOD SUCC 40 MG/1 ML VIAL IV PUSH SCH (06:23)
--- NOTE | 2017-01-03 07:47 | HHI.PR ---
Subjective Remarks She is lying in the bed and she reports that her breathing is improving such that she is not as labored with mild exertion as before. She is tolerating the current treatment plan without major problems. She is followed by Pulmonary Medicine also. Objective - Vital Signs Date Time Temp Pulse Resp B/P (MAP) Pulse Ox O2 Delivery O2 Flow Rate FiO2 01/03/17 04:00 97.6 76 20 154/69 (97) 98 01/03/17 00:00 97.7 78 20 124/58 (80) 96 01/02/17 21:46 97.0 73 19 145/63 (90) 01/02/17 20:37 100 Nasal Cannula 2.00 01/02/17 20:30 76 01/02/17 20:30 Nasal Cannula 2.00 01/02/17 16:00 97.5 76 20 168/76 (106) 100 01/02/17 12:00 97.5 79 18 135/63 (87) 98 01/02/17 12:00 97.5 76 20 168/76 (106) 100 01/02/17 11:40 16 01/02/17 09:00 Nasal Cannula 2.00 01/02/17 08:17 97 Nasal Cannula 2.00 01/02/17 08:00 98.5 79 18 156/67 (96) 98 01/02/17 07:54 73 I/O 01/02/17 01/02/17 01/02/17 01/03/17 01/03/17 01/03/17 07:00 15:00 23:00 07:00 15:00 23:00 Intake Total 480 ml 480 ml Output Total 1200 ml 300 ml Balance -1200 ml 180 ml 480 ml Intake Oral 480 ml 480 ml Output Urine Total 1200 ml 300 ml # Voids 2 2 # Bowel Movements 1 Result Diagram: 12/31/1662412/31/16624 Objective Remarks GENERAL: Alert and well oriented. SKIN: Warm and dry. HEAD: Normocephalic. Atraumatic. EYES: No scleral icterus. No injection or drainage. NECK: Supple, trachea midline. No JVD or lymphadenopathy. CARDIOVASCULAR: Regular rate and rhythm without murmurs, gallops, or rubs. RESPIRATORY: Breath sounds equal bilaterally. No accessory muscle use. Rare rhonchous sounds with rare expiratory wheeze. GASTROINTESTINAL: Abdomen soft, obese, non-tender and nondistended. MUSCULOSKELETAL: No evidence of cyanosis. Good range of motion of the limbs. There is mild distal leg edema. BACK: Nontender without obvious deformity. No CVA tenderness. A/P Assessment and Plan ASSESSMENT 1. Acute Left Lower Lung Community Acquired Pneumonia. 2. Pulmonary Atelectasis. 3. Chronic Oxygen Dependent Respiratory Failure. 4. 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 5. Chronic Kidney Disease-Stage 3. 6. Diabetes Mellitus, Type 2. 7. Diabetic Peripheral Neuropathy. 8. Obstructive Sleep Apnea Syndrome. 9. Obesity. PLAN 1. Laboratory assessments are pending. 2. CT Scan of the Chest is pending. 3. Continue with current therapeutics. 4. Activity out of bed as tolerated. 5. Pulmonary Medicine follows. 6. Discharge Planning. 7. DVT, PE and PUD prophylaxis. Arun Peters MD Jan 03, 2017 07:47
--- NOTE | 2017-01-03 08:26 | HHI.PR ---
Subjective Remarks 81 YOAA female with COPD Exac,LLLinfilt, CHF On Nc Cough, no sp no Fever Wheezing improved Uses Acapella Up in chair Objective Vital Signs Vital Signs Date Time Temp Pulse Resp B/P (MAP) Pulse Ox O2 Delivery O2 Flow Rate FiO2 01/03/17 04:00 97.6 76 20 154/69 (97) 98 01/03/17 00:00 97.7 78 20 124/58 (80) 96 01/02/17 21:46 97.0 73 19 145/63 (90) 01/02/17 20:37 100 Nasal Cannula 2.00 01/02/17 20:30 76 01/02/17 20:30 Nasal Cannula 2.00 01/02/17 16:00 97.5 76 20 168/76 (106) 100 01/02/17 12:00 97.5 79 18 135/63 (87) 98 01/02/17 12:00 97.5 76 20 168/76 (106) 100 01/02/17 11:40 16 01/02/17 09:00 Nasal Cannula 2.00 I/O 01/02/17 01/02/17 01/02/17 01/03/17 01/03/17 01/03/17 07:00 15:00 23:00 07:00 15:00 23:00 Intake Total 480 ml 480 ml Output Total 1200 ml 300 ml Balance -1200 ml 180 ml 480 ml Intake Oral 480 ml 480 ml Output Urine Total 1200 ml 300 ml # Voids 2 2 # Bowel Movements 1 Result Diagram: 12/31/1662412/31/16624 Objective Remarks GENERAL: Obese AA female, mild sob SKIN: Warm and dry. HEAD: Normocephalic. EYES: No scleral icterus. No injection or drainage. NECK: Supple, trachea midline. No JVD or lymphadenopathy. CARDIOVASCULAR: Regular rate and rhythm without murmurs, gallops, or rubs. RESPIRATORY: Breath sounds equal bilaterally. No accessory muscle use. End exp rhonchi GASTROINTESTINAL: Abdomen soft, non-tender, nondistended. MUSCULOSKELETAL: No cyanosis, or edema. BACK: Nontender without obvious deformity. No CVA tenderness. A/P Assessment and Plan COPD exac CHF DM Syncope LLL infilt renal insuff PLAN: DC Solumedrol Pred 10 mg po tid Aerosol nebs Acapella q 1 hr while awake supplement 02 Check CXR George Pichardo MD Jan 03, 2017 08:26
[2017-01-03 08:32] LABS: AUTOMATED NEUTROPHIL # 6.1 TH/MM3 (1.8-7.7); HEMATOCRIT 30.3 % (35.0-46.0); LYMPH % 5.8 % (9.0-44.0); LYMPHOCYTE # 0.4 TH/MM3 (1.0-4.8); MEAN CELL VOLUME 92.8 FL (80.0-100.0); MEAN CORPUSCULAR HEMOGLOBIN 30.6 PG (27.0-34.0); NEUT % 91.2 % (16.0-70.0); PLATELET COUNT 168 TH/MM3 (150-450); RED BLOOD COUNT 3.26 MIL/MM3 (4.00-5.30); RED CELL DISTRIBUTION WIDTH 15.2 % (11.6-17.2); WHITE BLOOD COUNT 6.7 TH/MM3 (4.0-11.0)
[2017-01-03 08:35] LABS: HEMO FLAGS AUTO DIFF
[2017-01-03] MEDS: CALCIUM/VITAMIN D 250 MG/125 U TAB PO SCH (08:59)
[2017-01-03] MEDS: FUROSEMIDE 20 MG TAB PO SCH (08:59)
[2017-01-03] MEDS: ENALAPRIL MALEATE 10 MG TAB PO SCH (08:59)
[2017-01-03] MEDS: HEPARIN SODIUM - SQ 10,000 UNITS/ML VIAL SQ SCH ×2 (08:59→21:10)
[2017-01-03] MEDS: ATORVASTATIN 10 MG TAB PO SCH (08:59)
[2017-01-03] MEDS: DOCUSATE SODIUM 50 MG/SENNA 8.6 MG TAB PO SCH ×2 (08:59→21:10)
[2017-01-03] MEDS: DILTIAZEM-CD 240 MG CAP ER PO SCH (08:59)
[2017-01-03] MEDS: FAMOTIDINE 20 MG TAB PO SCH ×2 (09:00→21:11)
[2017-01-03] MEDS: MELOXICAM 15 MG TAB PO SCH (09:00)
[2017-01-03] MEDS: INSULIN ASPAR PROT 70/30 1,000 UNITS/10 ML VIAL SQ SCH (09:00)
[2017-01-03] MEDS: INSULIN ASPART SUPPLEMENTAL SCALE SQ SCH ×4 (09:01→21:10)
[2017-01-03] MEDS: UMECLIDINIUM 62.5 MCG/VILANTEROL 25 MCG INHALER INH SCH (09:02)
[2017-01-03] MEDS: predniSONE 10 MG TAB PO SCH ×3 (09:03→18:21)
[2017-01-03] MEDS: RESP: ALBUTEROL 0.63 MG/3 ML NEB (SCH) NEB ×4 (09:05→20:39)
[2017-01-03 09:13] LABS: BICARBONATE 27.7 MEQ/L (21.0-32.0); MAGNESIUM 2.6 MG/DL (1.5-2.5)
--- NOTE | 2017-01-03 10:24 | RADRPT ---
EXAM DATE/TIME: 01/03/2017 09:37 [facility] COMPARISON: CT THORAX W/O CONTRAST, May 09, 2015, 17:14. INDICATIONS : Pneumonia, shortness of breath. RADIATION DOSE: 10.01 CTDIvol (mGy) MEDICAL HISTORY : Chronic obstructive pulmonary disease. Congestive heart failure. Diabetes mellitus type 2. SURGICAL HISTORY : None. ENCOUNTER: Initial ACUITY: 2 days PAIN SCALE: 0/10 LOCATION: chest TECHNIQUE: Volumetric scanning of the chest was performed. Using automated exposure control and adjustment of t he mA and/or kV according to patient size, radiation dose was kept as low as reasonably achievable to obtain optimal diagnostic quality images. DICOM format image data is available electronically for r eview and comparison. Follow-up recommendations for detected pulmonary nodules are based at a minimum on nodule size and pa tient risk factors according to Fleischner Society Guidelines. FINDINGS: LUNGS: Very subtle residual airspace opacity in the right mid lobe improved from prior examination and consi stent with atelectasis/scarring. Stable mild airspace consolidation in the left lower lobe the near l stephy base, likely atelectasis. There is a stable 9 mm solid nodule in the left lung base. There are no significant new focal pleural or parenchymal opacities. PLEURAE: There is no pleural thickening or pleural effusion. MEDIASTINUM: Coronary artery calcifications. No significant pericardial effusion. No gross mediastinal adenopathy. AXILLAE: Within normal limits. No lymphadenopathy. MUSCULOSKELETAL: Degenerative spondylosis throughout the thoracic spine. No definite focal lytic or blastic bony lesio ns. MISCELLANEOUS: The visualized upper abdominal organs demonstrate no acute abnormality. CONCLUSION: 1. No new airspace disease to suggest pneumonia as questioned. 2. Minimal residual right middle lobe atelectasis/scarring, improved from prior exam. 3. Stable left lower lobe atelectasis/scarring near the lung base. 4. Stable 9 mm nodule at the left lung base. Consider followup examination in [address] ability beyond 2 years. Hussain Cummings MD on January 03, 2017 at 10:07 Board Certified Radiologist. This report was verified electronically.
[2017-01-03 10:55] LABS: BANDS 1 % (0-6); CORRECTED NUCLEATED RBC 1 /100 WBC (0-0); METAMYELOCYTES 1 % (0-1); POLYS (SEG NEUTROPHILS) 88 % (16-70); WBC DIFF SAMPLE 100
[2017-01-03 10:56] LABS: PLATELET ESTIMATE SMEAR NORMAL (NORMAL); PLATELET MORPHOLOGY NORMAL (NORMAL); SCAN/DIFF FINAL DIFF MANUAL
[2017-01-03 10:57] LABS: HELMET CELLS OCC (NORMAL); KERATOCYTES OCC (NORMAL)
[2017-01-03] MEDS: LEVOFLOXACIN 500 MG PREMIX INJ 100 ML IV SCH (18:21)
[2017-01-03] MEDS: ACETAMINOPHEN/HYDROcodone 325 MG/7.5 MG TAB PO PRN (21:11)
[2017-01-03] MEDS: GABAPENTIN 100 MG CAP PO SCH (21:11)
[2017-01-04 00:02] VITALS: BP 151/65; PULSE 71; RESP 20; TEMP 97.9; O2SAT 97
[2017-01-04 04:00] VITALS: BP 155/72; PULSE 84; RESP 20; TEMP 97.9; O2SAT 100
[2017-01-04 07:36] VITALS: BP 164/114; PULSE 95; RESP 17; TEMP 98; O2SAT 100
[2017-01-04] MEDS: RESP: ALBUTEROL 0.63 MG/3 ML NEB (SCH) NEB ×2 (07:47→11:42)
[2017-01-04 07:48] VITALS: O2SAT 99
[2017-01-04] MEDS: INSULIN ASPART SUPPLEMENTAL SCALE SQ SCH ×2 (08:00→12:57)
[2017-01-04] MEDS: DOCUSATE SODIUM 50 MG/SENNA 8.6 MG TAB PO SCH (08:19)
[2017-01-04] MEDS: UMECLIDINIUM 62.5 MCG/VILANTEROL 25 MCG INHALER INH SCH (08:19)
[2017-01-04] MEDS: FAMOTIDINE 20 MG TAB PO SCH (08:19)
[2017-01-04] MEDS: CALCIUM/VITAMIN D 250 MG/125 U TAB PO SCH (08:20)
[2017-01-04] MEDS: predniSONE 10 MG TAB PO SCH (08:20)
[2017-01-04] MEDS: ENALAPRIL MALEATE 10 MG TAB PO SCH (08:21)
[2017-01-04] MEDS: DILTIAZEM-CD 240 MG CAP ER PO SCH (08:21)
[2017-01-04] MEDS: MELOXICAM 15 MG TAB PO SCH (08:21)
[2017-01-04] MEDS: HEPARIN SODIUM - SQ 10,000 UNITS/ML VIAL SQ SCH (08:21)
[2017-01-04] MEDS: ATORVASTATIN 10 MG TAB PO SCH (08:22)
[2017-01-04] MEDS: FUROSEMIDE 20 MG TAB PO SCH (08:22)
[2017-01-04] MEDS: ACETAMINOPHEN/HYDROcodone 325 MG/7.5 MG TAB PO PRN (08:29)
[2017-01-04] MEDS: INSULIN ASPAR PROT 70/30 1,000 UNITS/10 ML VIAL SQ SCH (08:30)
--- NOTE | 2017-01-04 11:46 | HHI.PR ---
Subjective Remarks 81 YOAA female with COPD Exac,LLLinfilt, CHF On Nc Cough, no sp no Fever Wheezing improved Uses Acapella Up in chair CT chest Improved lung infilt, mild basal atelactesis Objective Vital Signs Vital Signs Date Time Temp Pulse Resp B/P (MAP) Pulse Ox O2 Delivery O2 Flow Rate FiO2 01/04/17 07:48 99 Nasal Cannula 2.00 01/04/17 07:36 98.0 95 17 164/114 (131) 100 01/04/17 04:05 Bi-Pap 01/04/17 04:00 97.9 84 20 155/72 (99) 100 01/04/17 00:02 97.9 71 20 151/65 (93) 97 01/04/17 00:00 Bi-Pap 01/03/17 20:42 99 Nasal Cannula 2.00 01/03/17 20:00 97.2 82 24 155/69 (97) 97 01/03/17 20:00 Nasal Cannula 2.00 Humidified 01/03/17 20:00 78 01/03/17 16:00 97.8 80 20 153/68 (96) 98 01/03/17 13:09 92 Nasal Cannula 2.00 01/03/17 12:00 97.4 81 20 169/71 (103) 97 I/O 01/03/17 01/03/17 01/03/17 01/04/17 01/04/17 01/04/17 07:00 15:00 23:00 07:00 15:00 23:00 Intake Total 480 ml 720 ml 100 ml 360 ml Output Total 900 ml 325 ml Balance 480 ml -180 ml 100 ml 35 ml Intake Oral 480 ml 720 ml 360 ml IV Total 100 ml Output Urine Total 900 ml 325 ml # Voids 2 # Bowel Movements 0 2 Result Diagram: 01/03/1751 01/03/17650 Objective Remarks GENERAL: Obese AA female, mild sob SKIN: Warm and dry. HEAD: Normocephalic. EYES: No scleral icterus. No injection or drainage. NECK: Supple, trachea midline. No JVD or lymphadenopathy. CARDIOVASCULAR: Regular rate and rhythm without murmurs, gallops, or rubs. RESPIRATORY: Breath sounds equal bilaterally. No accessory muscle use. End exp rhonchi GASTROINTESTINAL: Abdomen soft, non-tender, nondistended. MUSCULOSKELETAL: No cyanosis, or edema. BACK: Nontender without obvious deformity. No CVA tenderness. A/P Assessment and Plan COPD exac CHF DM Syncope LLL infilt renal insuff PLAN: Pred 10 mg po tid Aerosol nebs Acapella q 1 hr while awake supplement 02 Stable from Pulm standpoint DC plans for home George Pichardo MD Jan 04, 2017 11:46
[2017-01-04 12:00] VITALS: BP 144/73; PULSE 76; RESP 18; TEMP 98.6; O2SAT 100
--- NOTE | 2017-01-04 12:39 | HHI.PR ---
Subjective Remarks Plans were discussed with her and her daughter with the decision made for discharge home with Home Health Care follow up. She has shown improvement for her respiratory status. Objective - Vital Signs Date Time Temp Pulse Resp B/P (MAP) Pulse Ox O2 Delivery O2 Flow Rate FiO2 01/04/17 07:48 99 Nasal Cannula 2.00 01/04/17 07:36 98.0 95 17 164/114 (131) 100 01/04/17 04:05 Bi-Pap 01/04/17 04:00 97.9 84 20 155/72 (99) 100 01/04/17 00:02 97.9 71 20 151/65 (93) 97 01/04/17 00:00 Bi-Pap 01/03/17 20:42 99 Nasal Cannula 2.00 01/03/17 20:00 97.2 82 24 155/69 (97) 97 01/03/17 20:00 Nasal Cannula 2.00 Humidified 01/03/17 20:00 78 01/03/17 16:00 97.8 80 20 153/68 (96) 98 01/03/17 13:09 92 Nasal Cannula 2.00 I/O 01/03/17 01/03/17 01/03/17 01/04/17 01/04/17 01/04/17 07:00 15:00 23:00 07:00 15:00 23:00 Intake Total 480 ml 720 ml 100 ml 360 ml Output Total 900 ml 325 ml Balance 480 ml -180 ml 100 ml 35 ml Intake Oral 480 ml 720 ml 360 ml IV Total 100 ml Output Urine Total 900 ml 325 ml # Voids 2 # Bowel Movements 0 2 Result Diagram: 01/03/17 0651 01/03/17 0651 Objective Remarks GENERAL: No new adverse changes. SKIN: Warm and dry. HEAD: Normocephalic. EYES: No scleral icterus. No injection or drainage. NECK: Supple, trachea midline. No JVD or lymphadenopathy. CARDIOVASCULAR: Regular rate and rhythm without murmurs, gallops, or rubs. RESPIRATORY: Breath sounds equal bilaterally. No accessory muscle use. GASTROINTESTINAL: Abdomen soft, non-tender, nondistended. MUSCULOSKELETAL: No cyanosis, or edema. BACK: Nontender without obvious deformity. No CVA tenderness. A/P Assessment and Plan ASSESSMENT 1. Acute Left Lower Lung Community Acquired Pneumonia. 2. Acute Exacerbation of Chronic Obstructive Pulmonary Disease. 3. Chronic Oxygen Dependent Respiratory Failure. 4. 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 5. Chronic Kidney Disease-Stage 3. 6. Diabetes Mellitus, Type 2. 7. Diabetic Peripheral Neuropathy. 8. Obstructive Sleep Apnea Syndrome. 9. Obesity. MEDICALLY IMPROVED STATUS PLAN 1. Laboratory assessments are pending. 2. CT Scan of the Chest is pending. 3. Continue with current therapeutics. 4. Activity out of bed as tolerated. 5. Pulmonary Medicine follows. 6. Discharge Planning. 7. DVT, PE and PUD prophylaxis. HOME TODAY WITH HOME HEALTH CARE Arun Peters MD Jan 04, 2017 12:39
--- NOTE | 2017-01-04 17:02 | HHI.FF ---
Face to Face Verification Diagnosis: (1) COPD (chronic obstructive pulmonary disease) (2) Pneumonia Occupational Therapy Order: Evaluate and Treat, Gross motor coordination Home Health Nursing Order: Signs/symptoms of disease process Oxygen administration education Nursing assessment with vital signs Sap Bpc Architect Order: To Evaluate: Living conditions/environment, Support services I have seen patient Coral Aparicio on 01/04/17. My clinical findings support the need for the requested home health care services because: Patient has SOB Limited ability to care for self I certify that my clinical findings support that this patient is homebound because: Hx COPD- exertion dyspnea/weakness Unsteady gait/balance Unsafe to leave home unassisted Arun Peters MD Jan 04, 2017 17:02
== END 2017-01-04 14:20 | disposition home or self-care (01) | DRG 190 ==
LOC: NEPC 15:09 → NEDA 17:19 → OBSVTOIN 17:40 → NEPGCP 18:57 → N04A 12-31 00:50
PROVIDERS: ADMIT Family Medicine; ATTEND Family Medicine
DX: J44.0 Chronic obstructive pulmonary disease with (acute) lower respiratory infection (principal); J18.9 Pneumonia, unspecified organism; I13.0 Hypertensive heart and chronic kidney disease with heart failure and stage 1 through stage 4 chronic kidney disease, or unspecified chronic kidney disease; E11.22 Type 2 diabetes mellitus with diabetic chronic kidney disease; E11.65 Type 2 diabetes mellitus with hyperglycemia; E11.42 Type 2 diabetes mellitus with diabetic polyneuropathy; I50.9 Heart failure, unspecified; Z68.42 Body mass index [BMI] 45.0-49.9, adult; Z99.81 Dependence on supplemental oxygen; J44.1 Chronic obstructive pulmonary disease with (acute) exacerbation; Z86.73 Personal history of transient ischemic attack (TIA), and cerebral infarction without residual deficits; E66.01 Morbid (severe) obesity due to excess calories; H40.9 Unspecified glaucoma; Z79.4 Long term (current) use of insulin; G47.33 Obstructive sleep apnea (adult) (pediatric); D63.8 Anemia in other chronic diseases classified elsewhere; N18.3 Chronic kidney disease, stage 3 (moderate)
CPT/HCPCS: 71010; 71250; 80048; 80053; 81001; 82010; 82550; 82948; 83540; 83550; 83735; 84484; 85007; 85025; 85027; 87040; 87086; 93005; 94640; 94664; 94667; 94668; 96360; 96361; C9113; J1644; J1815; J1956; J2920; J7040; J7512; J7613

== ENCOUNTER → 2017-04-01 | Outpatient (CLI) | payer MEDICARE, OTHER ==
[~2017-04-01] MED LIST changes: +ACTO15TA22 PO; +ALBU0.63 NEB; -BENZ100 PO; +CALTCHW4 CHEW; -CALTTAB PO; -CARD300C5 PO; -CETI10 PO; -CO Q100C9 PO; +DILT240C44 PO; -FLUT1INH INH; +FURO1TAB62 PO; +GABA100C4 PO; +HYDR-3580 PO; -LASI20TA PO; -LORTA5 PO; +MELO15TA20 PO; -OXYB5TAB33 PO; -SPIRCAP INH; -STOO100C PO; +UMEC1AER INH
--- NOTE | 2017-04-03 11:40 | RSPPFT ---
DATE OF PROCEDURE: 04/01/17 COMMENTS: Spirometry with FVC of 1.3 predicted 2.5, FEV1 of 0.6 predicted 1.8, FEV1/FVC ratio 50% predicted 81%. Lung volumes and DLCO could not be measured. IMPRESSION: On the basis of the above, patient has an obstructive lung defect with no response to acutely inhaled bronchodilator.
== END ==
LOC: HRSP 13:10
PROVIDERS: ATTEND Internal Medicine Pulmonary Disease
DX: J44.9 Chronic obstructive pulmonary disease, unspecified (principal)
CPT/HCPCS: 94060

== ENCOUNTER → 2017-05-08 | Outpatient (CLI) | payer MEDICARE, OTHER ==
[~2017-05-08] MED LIST changes: +NOVORP2 SQ; +OXYB5TAB8 PO
[2017-05-08 12:56] LABS: AUTOMATED NEUTROPHIL # 3.4 TH/MM3 (1.8-7.7); BASOPHIL % 0.5 % (0.0-2.0); EOSINOPHIL # 0.1 TH/MM3 (0-0.4); HEMATOCRIT 30.8 % (35.0-46.0); HEMOGLOBIN 10.2 GM/DL (11.6-15.3); LYMPH % 14.2 % (9.0-44.0); LYMPHOCYTE # 0.7 TH/MM3 (1.0-4.8); MEAN CELL VOLUME 92.9 FL (80.0-100.0); MEAN CORPUSCULAR HEMOGLOBIN 30.6 PG (27.0-34.0); MEAN PLATELET VOLUME 7.1 FL (7.0-11.0); MONO % 11.5 % (0.0-8.0); MONOCYTE # 0.5 TH/MM3 (0-0.9); NEUT % 71.8 % (16.0-70.0); PLATELET COUNT 198 TH/MM3 (150-450); RED BLOOD COUNT 3.32 MIL/MM3 (4.00-5.30); RED CELL DISTRIBUTION WIDTH 15.8 % (11.6-17.2); WHITE BLOOD COUNT 4.7 TH/MM3 (4.0-11.0)
[2017-05-08 12:57] LABS: BILIRUBIN, URINE NEG (NEG); BLOOD, URINE NEG (NEG); GLUCOSE,URINE NEG (NEG); HYALINE CAST, URINE 1 /lpf (RARE); KETONE, URINE NEG (NEG); NITRITE,URINE NEG (NEG); SQUAMOUS EPITHELIAL CELL URINE 1 /hpf (0-5); URINE COLOR YELLOW (YELLW/STRAW); URINE LEUKOCYTE ESTERASE NEG (NEG)
[2017-05-08 13:01] LABS: PROTHROMBIN TIME - PATIENT 9.8 SEC (9.8-11.6)
[2017-05-08 13:28] LABS: BICARBONATE 33.6 MEQ/L (21.0-32.0); CALCIUM 9.6 MG/DL (8.5-10.1); CREATININE 1.66 MG/DL (0.50-1.00)
== END ==
LOC: CPRE 11:31
PROVIDERS: ATTEND Orthopaedic Surgery Orthopaedic Surgery of the Spine
DX: Z01.812 Encounter for preprocedural laboratory examination (principal); M16.11 Unilateral primary osteoarthritis, right hip; Z79.01 Long term (current) use of anticoagulants
CPT/HCPCS: 36415; 80048; 81001; 85025; 85610; 85730